=== PATIENT | male | born 1955 | race Caucasian/White ===

== ENCOUNTER 2022-03-26 08:39 | Emergency (ER) | payer MEDICAID, OTHER ==
[2022-03-26] MEDS ORDERED: Bacitracin Oint 1 GM U/D Packet TOP ONE (09:27)
[2022-03-26] MEDS ORDERED: Lidocaine 1% 5 ML VIAL INJECT ONE (09:27)
== END 2022-03-26 11:24 | disposition home or self-care (01) ==
LOC: JP.ED 08:39
DX: S61.217A Laceration without foreign body of left little finger without damage to nail, initial encounter (principal); S61.215A Laceration without foreign body of left ring finger without damage to nail, initial encounter; S61.213A Laceration without foreign body of left middle finger without damage to nail, initial encounter; S61.211A Laceration without foreign body of left index finger without damage to nail, initial encounter; S61.512A Laceration without foreign body of left wrist, initial encounter; E78.00 Pure hypercholesterolemia, unspecified; I10 Essential (primary) hypertension; Z79.899 Other long term (current) drug therapy; W01.198A Fall on same level from slipping, tripping and stumbling with subsequent striking against other object, initial encounter
CPT/HCPCS: 12004; 99281; 99282-25